=== PATIENT | female | born 1990 | race Asian ===

== ENCOUNTER 2016-10-15 10:00 | Outpatient (CLI) | payer OTHER | END 2016-10-15 10:02 | LOC: LAB 10:00 | PROVIDERS: ATTEND Physician Assistant | DX: R31.9 Hematuria, unspecified (principal); R39.15 Urgency of urination | CPT/HCPCS: 87086 ==

== ENCOUNTER 2016-11-03 23:56 | Emergency (ER) | payer OTHER ==
[2016-11-04 00:43] LABS: BASOPHILS % 0.3 (0.0-1.5); MEAN CORPUSCULAR HEMOGLOBIN 28.1 pg (28.0-34.0); MEAN CORPUSCULAR VOLUME 83.5 fl (80.0-100.0); MONOCYTES % 3.9 % (0.0-11.0); NEUTROPHILS # 4.6 # k/uL (1.4-7.7)
--- NOTE | 2016-11-04 02:05 | ED Physician Documentation ---
Female Urogenital Problems - HISTORIAN Historian: patient, spouse - HPI Stated Complaint: Patient states she awoke this evening with some vaginal bleeding, 12 wks pr Chief Complaint: Female Urogenital Problems Onset: minutes Further Comments: yes (Patient states she awoke with vaginal bleeding. Has used 1 pad since 2300; denies any cramping, fever or abdominal pain. 12 weeks by dates, OB appointment tomorrow.) - Vaginal Bleeding Abnormal Bleeding Started: 11/03/16 LNMP (Last Known Menstrual Period): 08/10/16 : 1 Para: 0 Where was Test Done: home Care: No Sexual History: active - Associated Symptoms Urinary Symptoms: none - ROS CONST: none GI/: denies: nausea, vomiting, decreased appetite, diarrhea, black stools, bloody stools, other CVS/RESP: none EYES/ENT: none NEURO/PSYCH: none MS/SKIN/LYMPH: none - PAST HX Past History: ovarian cyst(s) Surgeries/Procedures: other (ovarian cyst removed) Allergies/Adverse Reactions: Allergies Allergy/AdvReac Type Severity Reaction Status Date / Time No Known Drug Allergies Allergy Verified 11/04/16 00:52 Home Medications: Ambulatory Orders Medication Instructions Recorded Pnv95/Ferrous Fumarate/FA 1 tab PO D 11/04/16 [ Caplet] - SOCIAL HX Smoking History: non-smoker - FAMILY HX Family History: denies: none - VITAL SIGNS Vital Signs: Vital Signs Temp Pulse Resp BP Pulse Ox 98.4 F 76 16 115/66 98 11/03/16 23:56 11/03/16 23:56 11/03/16 23:56 11/03/16 23:56 11/03/16 23:56 - REVIEWED ASSESSMENTS Nursing Assessment Reviewed: Yes Vitals Reviewed: Yes Progress - Progress Progress: Patient c/o small amount of leakage while in Er. US not available at this time. A+ ED Results Lab/Radiology - Lab Results Lab Results: Lab Results 11/04/16 00:37 WBC 7.80 K/ul K/ul (4.00-12.00) RBC 4.08 M/ul M/ul (3.90-5.20) Hgb 11.5 g/dL L g/dL (12.0-16.0) Hct 34.1 % L % (34.5-46.5) MCV 83.5 fl fl (80.0-100.0) MCH 28.1 pg pg (28.0-34.0) MCHC 33.6 g/dL g/dL (30.0-36.0) RDW 14.0 % % (11.3-14.3) Plt Count 215 K/mm3 K/mm3 (130-400) Neut % (Auto) 59.3 % % (39.0-79.0) Lymph % (Auto) 33.8 % % (16.0-50.0) [place] % (Auto) 3.9 % % (0.0-11.0) Eos % (Auto) 1.0 % % (0.0-6.8) Baso % (Auto) 0.3 (0.0-1.5) Neut # 4.6 # k/uL # k/uL (1.4-7.7) Lymph # 2.6 # k/uL # k/uL (0.6-4.0) [place] # 0.3 # k/uL # k/uL (0.0-0.9) Eos # 0.1 # k/uL # k/uL (0.0-0.6) Baso # 0.0 # k/uL # k/uL (0.0-0.5) Reactive Lymphs % 1.7 % % (0.0-5.0) Reactive Lymphs # 0.1 # k/uL # k/uL (0.0-0.8) - Orders Orders: ED Orders Category Date Time Status ABO/RH TYPE Stat Lab 11/04/16 Ordered CBC/PLATELET/DIFF Stat Lab 11/04/16 00:37 Completed HCG QUANTITATIVE Routine Lab 11/04/16 00:39 Received Female Urogenital Problems - EXAM General Appearance: mild distress EENT: eye inspection normal, ERICA Respiratory: no resp. distress, breath sounds nml CVS: reg rate & rhythm, heart sounds normal, equal pulses, no murmur, no gallop , PMI nml, no JVD, no friction rub, 24 Abdomen: soft, non-tender, no organomegaly, no distention, nml bowel sounds Skin: color nml, no rash, warm,dry Extremities: non-tender, normal range of motion, no evidence of injury, no edema , J, [employer] Neuro: oriented X3, CN's nml as tested, motor nml, sensation nml, mood/affect nml Discharge Clincal Impression: Threatened in early Referrals: Maryellen Gonzalez MD [Primary Care Provider] - 2 Days Home Medications: Ambulatory Orders Pnv95/Ferrous Fumarate/FA [ Caplet] 1 tab PO D 11/04/16 Condition: Stable Disposition: 01 HOME, SELF-CARE Decision to Admit: NO Decision Time: 02:08
[2016-11-04 02:54] VITALS: BP 108/64
== END 2016-11-04 02:10 | disposition home or self-care (01) ==
LOC: ED 23:56
DX: O20.0 Threatened abortion (principal); Z3A.12 12 weeks gestation of pregnancy
CPT/HCPCS: 84702; 85025; 86900; 86901; 99283